=== PATIENT | male | born 1990 | race Two or more races ===

== ENCOUNTER → 2023-11-23 | Outpatient (CLI) | payer BC ==
[2023-11-23 10:40] LABS: Basophils # (auto) 0 10 ^3/uL (0-0.2); Basophils % (auto) 0.6 % (0.0-2.0); Eosinophils # (auto) 0.1 10 ^3/uL (0-0.8); Eosinophils % (auto) 1.8 % (0.0-7.0); Hematocrit 43.9 % (41.0-53.0); Hemoglobin 14.2 g/dL (13.5-17.5); Lymphocytes # (auto) 2.2 10 ^3/uL (0.4-5.4); Lymphocytes % (auto) 38.9 % (10.0-50.0); Mean Corpuscular Hemoglobin 24.8 pg (28.0-32.0); Mean Corpuscular Hgb Conc. 32.4 g/dL (32.0-36.0); Mean Corpuscular Volume 76.8 fL (80.0-100.0); Monocytes # (auto) 0.4 10 ^3/uL (0-1.3); Monocytes % (auto) 6.4 % (0.0-12.0); Neutrophils % (auto) 52.3 % (37.0-80.0); Nucleated Red Blood Cells % 0.1 %; Platelet Count (auto) 190 10^3/uL (140-450); Red Blood Cells 5.71 10^6/uL (4.5-5.90); Red Cell Distribution Width 15.1 % (11.8-14.3); White Blood Cell 5.7 10^3/uL (4.4-10.8)
[2023-11-23 11:39] LABS: Alanine Aminotransferase 27 U/L (7-40); Albumin 4.7 g/dL (3.2-4.8); Alkaline Phosphatase 89 U/L (46-116); Calcium 9.7 mg/dL (8.7-10.4); Triglycerides 107 mg/dL (< 150)
[2023-11-23 11:40] LABS: Anion Gap 6 (5-15); Aspartate Aminotransferase 11 U/L (13-40); BUN/Creatinine Ratio 12.4 (10.0-20.0); Blood Urea Nitrogen 12 mg/dL (9-23); Carbon Dioxide 28 mmol/L (20-31); Chloride 108 mmol/L (98-107); Cholesterol 187 mg/dL (< 200); Glucose 96 mg/dL (74-106); HDL Cholesterol 46 mg/dL (40-59); LDL Cholesterol 130 mg/dL (< 100); Sodium 142 mmol/L (136-145); Total Protein 7.3 g/dL (5.7-8.2)
[2023-11-23 11:45] LABS: Free T4 (Free Thyroxine) 1.32 ng/dL (0.89-1.76)
[2023-11-23 11:46] LABS: Follicle Stimulating Hormone 6.26 IU/L (1.4-18.1)
== END | disposition home or self-care (01) ==
LOC: LAB 10:13
PROVIDERS: ATTEND Internal Medicine
DX: Z00.01 Encounter for general adult medical examination with abnormal findings (principal); Z13.1 Encounter for screening for diabetes mellitus; R79.89 Other specified abnormal findings of blood chemistry; R03.0 Elevated blood-pressure reading, without diagnosis of hypertension
CPT/HCPCS: 36415; 80053; 80061; 82306; 82607; 82670; 83001; 83002; 83036; 84403; 84439; 84443; 85025

== ENCOUNTER 2024-12-22 06:57 | Outpatient (CLI) | payer BC ==
[2024-12-22 07:23] LABS: Nucleated Red Blood Cells % 0.1 %
[2024-12-22 07:24] LABS: Hematocrit 35.1 % (41.0-53.0); Hemoglobin 11.1 g/dL (13.5-17.5); Mean Corpuscular Hemoglobin 19.9 pg (28.0-32.0); Mean Corpuscular Volume 63.0 fL (80.0-100.0)
[2024-12-22 07:56] LABS: Alanine Aminotransferase 52 U/L (7-40); Albumin 4.3 g/dL (3.2-4.8); Alkaline Phosphatase 102 U/L (46-116); Anion Gap 9 (5-15); BUN/Creatinine Ratio 10.8 (10.0-20.0); Blood Urea Nitrogen 10 mg/dL (9-23); Calcium 9.0 mg/dL (8.7-10.4); Carbon Dioxide 27 mmol/L (20-31); Chloride 105 mmol/L (98-107); Glucose 93 mg/dL (74-106); Potassium 4.0 mmol/L (3.5-5.1); Sodium 141 mmol/L (136-145); Total Protein 7.0 g/dL (5.7-8.2)
[2024-12-22 07:57] LABS: Bilirubin, Total 0.6 mg/dL (0.2-1.0)
== END 2024-12-22 17:00 | disposition home or self-care (01) ==
LOC: LAB 06:57
PROVIDERS: ATTEND Internal Medicine
DX: E78.5 Hyperlipidemia, unspecified (principal); R07.9 Chest pain, unspecified; I06.9 Rheumatic aortic valve disease, unspecified
CPT/HCPCS: 36415; 80053; 84484; 85025; 85379; 85652; 86141

== ENCOUNTER 2024-12-22 07:21 | Inpatient (IN) | payer BC ==
[2024-12-22] VITALS (12 sets, daily range): BP systolic 110–135; BP diastolic 70–95; PULSE 85–101; RESP 11–19; TEMP 98.3; O2SAT 96–99
[~2024-12-22] VITALS: Ht 177.8 cm; Wt 95.2 kg
--- NOTE | 2024-12-22 07:35 | ED.PDOC ---
History of Present Illness HPI Comments This is a 34 year old male presenting to the ED with chief complaint of chest pain. Patient reports that he had been experiencing a fever with associated chills for the past 2 days, however, since 2am this morning, he began to have chest pressure. Patient denies any cough, congestion, ear pain, SOB, hemoptysis, N/V, or dizziness. Chief Complaint: Flu like Time Seen by MD: 07:34 Reviewed Notes: Nurses Notes, Medications, Allergies Information Source: Patient Mode of Arrival: Ambulatory Severity: Mild Timing: Days Duration: Since onset Prehospital treatment: None Past Medical History PAST MEDICAL HISTORY: Denies Surgical History: Denies all surgeries Family History Family History: Reviewed,noncontributory to illness Social History Smoker: Non-Smoker Alcohol: Denies ETOH Use Drugs: Denies Drug Use Lives In: Home Constitutional: reports: chills, fever; denies: diaphoresis, fatigue, malaise, sweats, weakness, others EENTM: denies: blurred vision, double vision, ear bleeding, ear discharge, ear drainage, ear pain, ear ringing, eye pain, eye redness, hearing loss, mouth pain, mouth swelling, nasal discharge, nose bleeding, nose congestion, nose pain, photophobia, tearing, throat pain, throat swelling, voice changes, others Respiratory: denies: cough, hemoptysis, orthopnea, SOB at rest, shortness of breath, SOB with excertion, stridor, wheezing, others Cardiovascular: reports: chest pain; denies: dizzy spells, diaphoresis, Dyspnea on exertion, edema, irregular heart beat, left arm pain, lightheadedness, palpitations, PND, syncope, others Gastrointestinal: denies: abdomen distended, abdominal pain, blood streaked bowels, constipated, diarrhea, dysphagia, difficulty swallowing, hematemesis, melena, nausea, poor appetite, poor fluid intake, rectal bleeding, rectal pain, vomiting, others Genitourinary: denies: burning, dysuria, flank pain, frequency, hematuria, incontinence, penile discharge, penile sore, pain, testicle pain, testicle swelling, urgency, others Neurological: denies: dizziness, fainting, headache, left sided numbness, left sided weakness, numbness, paresthesia, pre-existing deficit, right sided numbness, right sided weakness, seizure, speech problems, tingling, tremors, weakness, others Musculoskeletal: denies: back pain, gout, joint pain, joint swelling, muscle pain, muscle stiffness, neck pain, others Integumetry: denies: bruises, change in color, change in hair/nails, dryness, laceration, lesions, lumps, rash, wounds, others Allergic/Immunocompromised: denies: Difficulty Healing, Frequent Infections, Hives, Itching, others Hematologic/Lymphatic: denies: anemia, blood clots, easy bleeding, easy bruising, swollen glands, others Endocrine: denies: excessive hunger, excessive sweating, excessive thirst, excessive urination, flushing, intolerance to cold, intolerance to heat, unexplained weight gain, unexplained weight loss, others Psychiatric: denies: anxiety, bipolar disorder, depression, hopeless, panic disorder, schizophrenia, sleepless, suicidal, others All Other Systems: Reviewed and Negative Physical Exam General Appearance: Moderate Distress HEENT: Normal ENT Inspection, Pharynx Normal, TMs Normal Neck: Full Range of Motion, Non-Tender, Normal, Normal Inspection Respiratory: Lungs Clear, No Accessory Muscle Use, No Respiratory Distress, Normal Breath Sounds, Other (Tenderness to the anterior chest) Cardiovascular: No Edema, No JVD, No Murmur, No Gallop, Normal Peripheral Pulses, Regular Rate/Rhythm Breast Exam: Deferred Gastrointestinal: No Organomegaly, Non Tender, No Pulsatile Mass, Normal Bowel Sounds, Soft Genitalia: Deferred Pelvic: Deferred Rectal: Deferred Extremities: No calf tenderness, Normal capillary refill, No pedal edema Musculoskeletal : Apperance: Normal Neurologic: Alert, medical lab specialist II-XII nml as Tested, No Motor Deficits, Normal Affect, Normal Mood, No Sensory Deficits Cerebellar Function: Normal Reflexes: Normal Skin: Dry, Normal Color, Warm Lymphatic: No Adenopathy Was a procedure done? Was a procedure done?: No EKG EKG : Pulse Rate (adult): 74 [place]: Normal Cardiac Rhythm: NSR ST: Nonsp Differential Dx Considerations may include: ACS, TX, acute myocardial ischemia X-Ray, Labs, Meds, VS Vital Signs Date Time Temp Pulse Resp B/P (MAP) Pulse Ox O2 Delivery O2 Flow Rate FiO2 12/22/24 07:31 98.5 92 18 146/110 98 98.5 Lab Test 12/22/24 08:00 Range/Units Influenza Type A Antigen Negative Negative Influenza Type B Antigen Negative Negative SARS-CoV-2 Antigen (Rapid) Negative NEGATIVE Chest XR indicates: No acute cardiopulmonary disease. IV Hep-Lock is being established. The COVID test is negative The influenza a and influenza B are negative The patient had some outpatient labs done in his troponin level is over 800 At this time, the patient is being admitted with a diagnosis of acute pericarditis The patient will be started on some Toradol as well as some steroids The patient was given Solu-Medrol 125 mg IV push A cardiology consult will be obtained. Images Reviewed?: Images reviewed and evaluated by me Time of 1ST Reevaluation: 09:19 Reevaluation 1ST: Unchanged Patient Education/Counseling: Diagnosis, Treatment, Prognosis Family Education/Counseling: No Family Present SEPSIS Sepsis Screen Physician Orders Chest Xray 1 View (12/22/24 07:26) Heplock Iv (12/22/24 08:23) Implementation Engineer (12/22/24 08:23) Blood Pressure (12/22/24 08:23) Pulse Oximetry (12/22/24 08:23) Electrocardigram (12/22/24 08:23) Troponin-I Hs (12/22/24 08:23) Electrocardigram (12/22/24 09:23) Electrocardigram (12/22/24 11:23) Troponin-I Hs (12/22/24 09:23) Troponin-I Hs (12/22/24 11:23) Vital Signs Date Time Temp Pulse Resp B/P (MAP) Pulse Ox O2 Delivery O2 Flow Rate FiO2 12/22/24 07:31 98.5 92 18 146/110 98 98.5 Departure 1 Departure Time of Disposition: 09:19 Impression: Primary Impression: Acute chest pain Additional Impressions: Pericarditis Qualified Codes: I30.9 - Acute pericarditis, unspecified Elevated troponin Disposition: ADMITTED INPATIENT Admit to: Tele Condition: Fair Critical Care Note Critical Care Time?: No Stability Stability form required: Yes Unstable for transfer: Telemetry monitoring (Telemetry monitoring required), ED Physician Assesment (Clinical assesment) Heart Score Heart Score: Heart Score Response (Comments) Value History Moderate Suspicious 1 EKG Normal 0 Age <45 0 Risk Factors No known risk factors 0 Troponin >3 x's Normal limit 2 Total 3 I personally scribed for DARIELA,CHIDI B MD ([email or web address]) on 12/22/24 at 07:35. Electronically submitted by Esa Jean ([email or web address]). I personally scribed for CHIDI LYLE MD ([email or web address]) on 12/22/24 at 08:47. Electronically submitted by Esa Jean ([email or web address]). CHIDI LYLE MD Dec 22, 2024 07:35
--- NOTE | 2024-12-22 08:20 | DVH ---
EXAM: XY CHEST XRAY 1 VIEW Indication: cough Technique: Single frontal view of the chest was obtained Comparison: None FINDINGS: Lines and Tubes: None Lungs: No focal consolidation. Pleura: No effusion. No pneumothorax. Cardiomediastinal contours: Unremarkable Bones: No acute osseous abnormality. IMPRESSION: No acute cardiopulmonary disease.
[2024-12-22 08:56] LABS: COVID19 ANTIGEN SOFIA FIA NEGATIVE (NEGATIVE)
[2024-12-22] MEDS ORDERED: NITROGLYCERIN 0.4 MG SL TAB SL PRN (09:30)
[2024-12-22] MEDS ORDERED: HYDROcodone-ACET 5/325MG TAB PO PRN (09:30)
[2024-12-22] MEDS ORDERED: MORPHINE SULFATE INJ 2 MG/ml SYRG IV PRN (09:30)
[2024-12-22] MEDS ORDERED: ACETAMINOPHEN 325 MG TAB PO PRN (09:30)
--- NOTE | 2024-12-22 09:40 | DVHHPRES ---
History of Present Illness Resident Creating Document: INO CROCKER RESIDENT History of Present Illness Dez Regalado is a 34 year old male presenting to the ED with chief complaint of chest pain. Patient reports that he had been experiencing a fever with associated chills for the past 2 days, however, since 2am this morning, he began to have chest pressure 8/10 intensity, nonradiating, no aggravating but relieved by taking Tylenol. Patient denies any cough, congestion, ear pain, SOB, hemoptysis, N/V, or dizziness. PMH: Nonsignificant PSH: Not significant Family history: Nonsignificant Social history: Lives at home. Denies smoking, alcohol or drug abuse Home medications: None Allergies: No known allergies ROS: Patient seen and examined at the bedside. Patient is currently reporting chest pain intensity 3/10 which is improved but rest of ROS is negative Review of Systems Medications Current Medications Medications Dose Ordered Sig/Morenita Route Start Time Stop Time Status Last Admin Dose Admin Sodium Chloride 10 ml Q8HR IV 12/22/24 14:00 UNV Acetaminophen/ Hydrocodone Bitart 1 tab Q4HP PRN PO 12/22/24 09:30 UNV Acetaminophen 650 mg Q6HP PRN PO 12/22/24 09:30 UNV Nitroglycerin 0.4 mg Q5MINP PRN SL 12/22/24 09:30 UNV Morphine Sulfate 2 mg Q30M PRN IV 12/22/24 09:30 UNV Colchicine 0.6 mg Q12HR PO 12/22/24 09:30 UNV Exam Vital Signs Vital Signs Date Time Temp Pulse Resp B/P (MAP) Pulse Ox O2 Delivery O2 Flow Rate FiO2 12/22/24 09:21 74 12/22/24 07:31 98.5 18 146/110 98 98.5 Exam Pt is lying on bed General Appearance: Alert, Oriented X3, Cooperative, Not in acute distress HEENT: Atraumatic, Mucous membranes moist/pink Respiratory: Clear to auscultation, Normal air movement, No added sounds Cardiovascular: Regular rate, Normal S1, Normal S2, No murmurs Abdominal: Active bowel sounds, Soft, no distention, no tenderness Extremities: No edema, Normal pulses, No tenderness/swelling Skin: No Significant rash Neuro: Normal speech, sensorimotor deficits none Psych/Mental Status: Mental status NL, Mood NL Nurse was there as insurance underwriter during examination Labs/Xrays Labs Test 12/22/24 08:00 Range/Units Influenza Type A Antigen Negative Negative Influenza Type B Antigen Negative Negative SARS-CoV-2 Antigen (Rapid) Negative NEGATIVE SEPSIS Sepsis Screen Date sepsis recognized/suspect: Dec 22, 2024 Time Sepsis recognized/suspect: 732 Recent Procedure: No On Antibiotic Therapy: No Respiratory Rate >20: No Heart Rate >90: No Temp<36 C (96.8 F) or >38.3 C: No SBP <90 or MAP <65 mmHG: No New Acute Mental Status Change: No Is the patient on CPAP, BIPAP,: No Physician Orders Chest Xray 1 View (12/22/24 07:26) Heplock Iv (12/22/24 08:23) Key Carrier (12/22/24 08:23) Blood Pressure (12/22/24 08:23) Pulse Oximetry (12/22/24 08:23) Electrocardigram (12/22/24 08:23) Troponin-I Hs (12/22/24 08:23) Electrocardigram (12/22/24 09:23) Electrocardigram (12/22/24 11:23) Troponin-I Hs (12/22/24 09:23) Troponin-I Hs (12/22/24 11:23) Methylprednisolone Sod Succ (Solu Medrol (12/22/24 09:30) Ketorolac Injection (Toradol Injection) (12/22/24 09:30) Admit (12/22/24 09:25) Allergies (12/22/24 09:25) Code Status (12/22/24 09:25) Sodium Chloride Lock (Saline Lock Ns) (12/22/24 14:00) Hydrocodone-Acet 5/325mg Tab ([place] 5/32 (12/22/24 09:30) Condition: Stable (12/22/24 09:25) Acetaminophen Tablet (Tylenol Tablet) (12/22/24 09:30) Nitroglycerin Sublingual (Ntrostat Subli (12/22/24 09:30) Morphine Sulfate Injection (12/22/24 09:30) Oxygen By Nasal Cannula (12/22/24 09:25) Stat Ekg For Chest Pain (12/22/24 09:25) Notify Of Changes From Base (12/22/24 09:25) Data Capture Clerk For 24 Hours (12/22/24 09:25) Emergency Dysrhythmia Protocol (12/22/24 09:25) Rhythm Strips Once Every Shift (12/22/24 09:25) Colchicine (Colcrys) (12/22/24 09:30) Pantoprazole Tablet (Protonix Tablet) (12/22/24 09:45) Vital Signs Date Time Temp Pulse Resp B/P (MAP) Pulse Ox O2 Delivery O2 Flow Rate FiO2 12/22/24 09:21 74 12/22/24 07:31 98.5 92 18 146/110 98 98.5 Medications Medications Dose Ordered Sig/Morenita Route Start Time Stop Time Status Last Admin Dose Admin Aspirin 162 mg ONCE ONCE PO 12/22/24 08:30 12/22/24 08:31 DC 12/22/24 09:28 162 MG Assessment/Plan Assessment/Plan # Chest pain rule out ACS # NSTEMI likely type 2 # Possible acute pericarditis likely postviral - Telemetry - EKG - troponins initially 870 - elevated C-reactive protein - chest pain protocol - Toradol - started colchicine 0.6 mg q.12h - echocardiogram PUD PPX: Protonix DVT PPX: Patient is ambulatory Diet: Regular Goals of care discussed with the patient for more than 27 mins: Full code status Case discussed with Dr. Martinez Plan discussed with: Patient My Orders Orders - INO CROCKER RESIDENT Procedure Category Date Status Time Admit ADMIT 12/22/24 Transmitted 09:25 Allergies SUSSY 12/22/24 In Process 09:25 Code Status CODE 12/22/24 Transmitted 09:25 Sodium Chloride Lock PHA 12/22/24 Logged (Saline Lock Ns) 14:00 Hydrocodone-Acet PHA 12/22/24 Logged 5/325mg Tab ([place] 09:30 Condition: Stable SUSSY 12/22/24 In Process 09:25 Acetaminophen Tablet PHA 12/22/24 Logged (Tylenol Tablet) 09:30 Nitroglycerin PHA 12/22/24 Logged Sublingual (Ntrostat 09:30 Morphine Sulfate PHA 12/22/24 Logged Injection 09:30 Oxygen By Nasal RT 12/22/24 Transmitted Cannula 09:25 Stat Ekg For Chest SUSSY 12/22/24 In Process Pain 09:25 Notify Of Changes SUSSY 12/22/24 In Process From Base 09:25 Data Capture Clerk For SUSSY 12/22/24 In Process 24 Hours 09:25 Emergency Dysrhythmia SUSSY 12/22/24 In Process Protocol 09:25 Rhythm Strips Once SUSSY 12/22/24 In Process Every Shift 09:25 Colchicine (Colcrys) PHA 12/22/24 Logged 09:30 Pantoprazole Tablet PHA 12/22/24 Verified (Protonix Tablet) 09:45 Date of Service: Dec 22, 2024 Billing Provider: MICHELLE MARTINEZ MD Common Visit Codes: [id number] INP/OBS CARE (MOD) INO CROCKER RESIDENT Dec 22, 2024 09:40
--- NOTE | 2024-12-22 09:56 | DVHINCON2 ---
Date Seen: Dec 22, 2024 Referring Physician MD Taz Reason for Consultation Elevated troponins, chest pain History of Present Illness This is a pleasant 34-year-old male who presented to the emergency room with a chief complaint of chest pain since 0200 today. Describes his chest pain as substernal, nonradiating, non-provoked, intermittent, tightness like, and associated with cold-like symptoms. Lying down makes the pain worse and leaning forward makes it better. The patient self administered Tylenol with mild relief of symptoms. Rated his chest pain as 3/10 at time of assessment. He underwent a 12 lead electrocardiogram revealing a sinus rhythm suggestive of acute pericarditis. Baseline troponin level was found at 870 ng/L. Significant medical history includes dyslipidemia and obesity. Past Medical History Past medical history reviewed. No other significant than mentioned above. Past Surgical History Past surgical history reviewed. No other significant than mentioned above. Family History Family history reviewed. Significant for cardiovascular disease: Maternal grandfather with a history of multiple MIs x5 with stent placement. Social History Denies the use of illicit drugs or tobacco use. Admits to social alcohol use. Allergies: Coded Allergies: NO KNOWN ALLERGIES (Unverified , 12/22/24) Home Meds Tylenol. Current Medications Current Medications Medications (Trade) Dose Ordered Sig/Morenita Route PRN Reason Start Time Stop Time Status Last Admin Sodium Chloride (Saline Lock Ns) 10 ml Q8HR IV 12/22/24 14:00 UNV Acetaminophen/ Hydrocodone Bitart ([place] 5/325MG Tab) 1 tab Q4HP PRN PO MODERATE PAIN (4-6 PAIN SCALE) 12/22/24 09:30 UNV Acetaminophen (Tylenol Tablet) 650 mg Q6HP PRN PO PAIN SCALE 1-3 OR TEMP>100.4 12/22/24 09:30 UNV Nitroglycerin (Ntrostat Sublingual) 0.4 mg Q5MINP PRN SL FOR CHEST PAIN 12/22/24 09:30 UNV Morphine Sulfate 2 mg Q30M PRN IV FOR CHEST PAIN 12/22/24 09:30 UNV Colchicine (Colcrys) 0.6 mg Q12HR PO 12/22/24 09:30 UNV Pantoprazole Sodium (Protonix Tablet) 40 mg DAILY@0600 PO 12/22/24 09:45 UNV Review of Systems Constitutional: No symptom reported Ears, Nose, & Throat: No symptom reported Eyes: No symptom reported Neurological: No symptoms reported Pulmonary/Respiratory: No symptom reported Cardiovascular: Chest pain Gastrointestinal: No symptom reported Genitourinary: No symptom reported Musculoskeletal: No symptom reported Skin: No symptom reported Psychiatric: No symptom reported Endocrine: No symptom reported Hemotologic/Lymphatic: No symptom reported Vital Signs Vital Signs Date Time Temp Pulse Resp B/P (MAP) Pulse Ox O2 Delivery O2 Flow Rate FiO2 12/22/24 09:21 74 12/22/24 07:31 98.5 18 146/110 98 98.5 Physical Exam General Appearance: Cooperative. Well developed. Well nourished. In no acute distress Head Exam: Normal inspection Neck Exam: Normal inspection. Non-tender. Normal alignment Pulmonary/Respiratory: Chest non-tender. Clear bilateral breath sounds Cardiovascular/Chest: Regular rate and rhythm. S1, S2. Sinus rhythm with doss btle ST-elevation to multiple leads suggestive of pericarditis. No murmurs. No JVD. Peripheral Pulses: 2+ Radial (R). 2+ Radial (L). 2+ Pedal (R). 2+ Pedal (L) Abdominal Exam: Normal bowel sounds. Soft. Ankle Exam: Negative ankle edema Lower extremities: Negative lower extremity edema Neuro/Mental Status: A&O x4. Coherent Thoughts/Psych: Normal thought pattern. Appropriate mood and affect. Good judgement and insight Appearance: In no acute distress Skin Exam: Normal inspection. Normal color. Warm. Dry Labs/Diagnostic Data Labs Test 12/22/24 08:00 Range/Units Influenza Type A Antigen Negative Negative Influenza Type B Antigen Negative Negative SARS-CoV-2 Antigen (Rapid) Negative NEGATIVE Assessment Non ST-elevation myocardial infarction Highly suspected for acute viral pericarditis Dyslipidemia Obesity * Transthoracic echocardiogram revealed LVEF 65% with normal RV function, valves appear to be structurally normal * 12 lead electrocardiogram sinus rhythm with a subtle ST-elevation suggestive of acute pericarditis * Baseline troponin level 870 ng/L. CRP 1.31. ESR 14 Plan/Recommendation (Dr. Pena) The patient presents with likely acute viral pericarditis given recent cold-like symptoms. Given ST-segment changes, elevated troponin level, and family history for cardiovascular disease, the patient has been scheduled for a cardiac catheterization with coronary angiogram with Dr. Pena at first available. All risks and benefits of the procedure were discussed with the patient who agreed to proceed with intervention. All questions answered. In the meantime, initiate ibuprofen 600 mg p.o. q8h for 1-2 weeks, then decrease dose by 200-400 mg every 1-2 weeks. Add PPI and colchicine therapy qd. Further orders per clinical course. Thank you for allowing us to participate in this patient's care. Please call if you have any questions or concerns. This medical document was created using an electronic medical record system with voice recognition software and computerized dictation system. Although this document has been carefully reviewed, there might still be some phonetic and typographical errors. Occasional wrong-word or ``sound-alike substitutions may have occurred due to the inherent limitations of voice recognition software. These areas are purely typographical due to imperfections of the software programs and do not reflect any compromise in the patient's medical care. Pl ease read the chart carefully and recognize, using context, where these substitutions have occurred. Plan discussed with: Patient, Spouse, Other NYHA Physical activity limitations: NA Date of Service: Dec 22, 2024 Billing Provider: J CARLOS RESENDEZ Cardiology Common Codes: [id number]-[id number] INP/OBS CARE (High) J CARLOS RESENDEZ Dec 22, 2024 09:56
[2024-12-22] MEDS: IODIXANOL 320MG/ML 100ML BTL IV ONE (10:43)
[2024-12-22] MEDS: ANGIOMAX 250 MG VIAL IV ONE (10:50)
[2024-12-22] MEDS: fentaNYL CITRATE 100 MCG/2 ML VL ONE (10:50)
[2024-12-22] MEDS: LIDOCAINE 2%HCL (LOCAL ANESTH.) INJ 20ML MDV ONE (10:51)
[2024-12-22] MEDS: SODIUM CHL 0.9% 0 ML ONE (10:51)
[2024-12-22] MEDS: MIDAZOLAM HCL 2MG/2ML 2ml VIAL (1mg/ml) ONE (10:51)
[2024-12-22] MEDS: HEPARIN 1,000 UNITS/ml 1ML VIAL ONE (10:52)
[2024-12-22] MEDS: VERAPAMIL 2.5MG/ML INJ 2ML VIAL IV ONE (10:52)
[2024-12-22] MEDS: HEPARIN SODIUM (PORCINE) 5000 UNITS/ML 1ML VIAL ONE (11:34)
--- NOTE | 2024-12-22 11:43 | DVHINCON2 ---
Date of service: Dec 22, 2024 History of Present Illness 34 yo M with no PMH, recent fever, maliase, flu like symptoms admitted for nsteim and chest pain. CP is worse at rest and better with sitting up. ecg shows SR, non specific st t changes . stat echo shows normal lvef Past Medical History reviewed Allergies: Coded Allergies: NO KNOWN ALLERGIES (Unverified , 12/22/24) Current Medications Current Medications Medications (Trade) Dose Ordered Sig/Morenita Route PRN Reason Start Time Stop Time Status Last Admin Sodium Chloride (Saline Lock Ns) 10 ml Q8HR IV 12/22/24 14:00 Acetaminophen/ Hydrocodone Bitart ([place] 5/325MG Tab) 1 tab Q4HP PRN PO MODERATE PAIN (4-6 PAIN SCALE) 12/22/24 09:30 Acetaminophen (Tylenol Tablet) 650 mg Q6HP PRN PO PAIN SCALE 1-3 OR TEMP>100.4 12/22/24 09:30 Nitroglycerin (Ntrostat Sublingual) 0.4 mg Q5MINP PRN SL FOR CHEST PAIN 12/22/24 09:30 Morphine Sulfate 2 mg Q30M PRN IV FOR CHEST PAIN 12/22/24 09:30 Colchicine (Colcrys) 0.6 mg Q12HR PO 12/22/24 09:30 Pantoprazole Sodium (Protonix Tablet) 40 mg DAILY@0600 PO 12/22/24 09:45 Review of Systems 10 pt ros otherwise negative +fever, +weakness, +rigors Vital Signs Vital Signs Date Time Temp Pulse Resp B/P (MAP) Pulse Ox O2 Delivery O2 Flow Rate FiO2 12/22/24 09:30 96 18 141/95 (110) 99 12/22/24 09:30 Room Air* 0 21 12/22/24 07:31 98.5 98.5 Physical Exam nad s1 s2 rrr ctab soft nt/nd no edema Labs/Diagnostic Data Labs Test 12/22/24 10:44 12/22/24 08:00 Range/Units Troponin I High Sensitivity 1061 *H </=54 ng/L Influenza Type A Antigen Negative Negative Influenza Type B Antigen Negative Negative SARS-CoV-2 Antigen (Rapid) Negative NEGATIVE Assessment r/o pericarditis fever Plan/Recommendation recommend LHC to r/o cad pt agrees to plan after informed consent tylenol, asa watch tele IVF Plan discussed with: Patient ANNA BARBER MD Dec 22, 2024 11:43
--- NOTE | 2024-12-22 11:44 | DVHOP2 ---
Operative Report Operative Report CARDIAC MATERIAL HANDLING SUPERVISOR PROCEDURE REPORT [place], [place] Date of Service: 12/22/24 Ammonia Box Operator: Anna Barber MD PROCEDURES PERFORMED: Coronary angiogram, left heart catheterization, conscious sedation administration and supervision, less than 15 minutes; fluoroscopy use and interpretation. PREOPERATIVE DIAGNOSES: r/o myopericaridits, elevated troponin POSTOP DIAGNOSIS: myopericarditis DESCRIPTION OF PROCEDURE: The patient or appropriate family signed informed consent understanding the risks, benefits and alternatives of the procedure, they wished to proceed. The patient was brought to the cardiac labor relations analyst in n.p.o. state. The patient was prepped in a sterile fashion. Sedation was used per cardiac cath protocol. I administered 2 mL of 2% lidocaine to the right wrist. With an antegrade front wall puncture. I cannulated the right radial artery and placed a 6-[place] Glidesheath slender. Next, an intra-arterial spasmolytic was administered. Next, a - 6[place] catheter pigtail guide and were used for coronary angiogram and LVEDP measurement and pressure pullback. At the completion of procedure, all guides and wires were removed, and there were no immediate complications. FINDINGS: RCA: Moderate vessel off the right sinus of Valsalva, there is no severe flow limiting stenosis. LEFT MAIN: Moderate size left main, it bifurcates into LAD and circumflex. no stenosis CIRCUMFLEX: Moderate caliber vessel coming off the left main with no flow limiting stenosis. LAD: LAD is a moderate caliber vessel coming of the left main. no stenosis CONCLUSIONS: 1. NO cad, normal coronary arteries PLAN: Aggressive risk factor modification and medical management for the patient. ANNA BARBER MD Dec 22, 2024 11:44
[2024-12-22 11:48] LABS: Hematocrit 36.4 % (41.0-53.0); Hemoglobin 11.1 g/dL (13.5-17.5); Mean Corpuscular Hemoglobin 19.3 pg (28.0-32.0); Mean Corpuscular Volume 63.0 fL (80.0-100.0); Nucleated Red Blood Cells % 0.0 %
[2024-12-22 11:52] LABS: Chloride 105 mmol/L (98-107); Potassium 4.8 mmol/L (3.5-5.1); Sodium 141 mmol/L (136-145)
[2024-12-22 11:53] LABS: Anion Gap 10 (5-15); Calcium 9.2 mg/dL (8.7-10.4); Carbon Dioxide 26 mmol/L (20-31)
[2024-12-22 11:58] LABS: BUN/Creatinine Ratio 10.0 (10.0-20.0); Blood Urea Nitrogen 8 mg/dL (9-23); Glucose 93 mg/dL (74-106)
[2024-12-22 12:04] LABS: INR 0.98 (0.9-1.15); Partial Thromboplastin Time 28.3 SEC (24.5-34.5); Prothrombin Time 10.4 sec (9.3-11.8)
[2024-12-22 12:21] LABS: Triglycerides 111.0 mg/dL (< 150)
[2024-12-22] MEDS: methylPREDNISolone SOD SUCC 125 MG/2 ML VL IV ONE (12:21)
[2024-12-22 12:22] LABS: Magnesium 2.2 mg/dL (1.6-2.6)
[2024-12-22] MEDS: PANTOPRAZOLE 40 MG TAB PO SCH (12:22)
[2024-12-22] MEDS: COLCHICINE 0.6 MG CAP PO SCH (12:22)
[2024-12-22] MEDS: KETOROLAC TROMETH 30 MG/ML 1ML VIAL IV ONE (12:22)
[2024-12-22 12:24] LABS: Cholesterol 172.0 mg/dL (< 200)
[2024-12-22 12:27] LABS: HDL Cholesterol 37.0 mg/dL (40-59)
--- NOTE | 2024-12-22 13:37 | DVHDS2 ---
Discharge Summary Date of Admission Dec 22, 2024 at 09:25 Date of Discharge: Dec 22, 2024 Labs/Diagnostic Data: Laboratory Results Test 12/22/24 10:44 12/22/24 08:00 White Blood Count 5.9 10^3/uL (4.4-10.8) Red Blood Count 5.78 10^6/uL (4.5-5.90) Hemoglobin 11.1 g/dL (13.5-17.5) Hematocrit 36.4 % (41.0-53.0) Mean Corpuscular Volume 63.0 fL (80.0-100.0) Mean Corpuscular Hemoglobin 19.3 pg (28.0-32.0) Mean Corpuscular Hemoglobin Concent 30.7 g/dL (32.0-36.0) Red Cell Distribution Width 19.5 % (11.8-14.3) Platelet Count 165 10^3/uL (140-450) Mean Platelet Volume 9.9 fL (6.9-10.8) Neutrophils (%) (Auto) 67.2 % (37.0-80.0) Lymphocytes (%) (Auto) 20.9 % (10.0-50.0) Monocytes (%) (Auto) 10.1 % (0.0-12.0) Eosinophils (%) (Auto) 1.4 % (0.0-7.0) Basophils (%) (Auto) 0.4 % (0.0-2.0) Neutrophils # (Auto) 4.0 10 ^3/uL (1.6-8.6) Lymphocytes # (Auto) 1.2 10 ^3/uL (0.4-5.4) Monocytes # (Auto) 0.6 10 ^3/uL (0-1.3) Eosinophils # (Auto) 0.1 10 ^3/uL (0-0.8) Basophils # (Auto) 0 10 ^3/uL (0-0.2) Nucleated Red Blood Cells 0.0 % Prothrombin Time 10.4 sec (9.3-11.8) Prothrombin Time INR 0.98 (0.9-1.15) Activated Partial Thromboplast Time 28.3 SEC (24.5-34.5) Sodium Level 141 mmol/L (136-145) Potassium Level 4.8 mmol/L (3.5-5.1) Chloride Level 105 mmol/L (98-107) Carbon Dioxide Level 26 mmol/L (20-31) Anion Gap 10 (5-15) Blood Urea Nitrogen 8 mg/dL (9-23) Creatinine 0.80 mg/dL (0.700-1.30) Glomerular Filtration Rate Calc 121 mL/min (>90) BUN/Creatinine Ratio 10.0 (10.0-20.0) Serum Glucose 93 mg/dL (74-106) Calcium Level 9.2 mg/dL (8.7-10.4) Magnesium Level 2.2 mg/dL (1.6-2.6) Troponin I High Sensitivity 1061 ng/L (</=54) B-Type Natriuretic Peptide 20.65 pg/mL (0-100) Triglycerides Level 111 mg/dL (< 150) Cholesterol Level 172 mg/dL (< 200) LDL Cholesterol 122 mg/dL (< 100) HDL Cholesterol 37 mg/dL (40-59) Vitamin B12 Level 584 pg/mL (211-911) Vitamin D 25-Hydroxy 28.2 ng/mL (30.0-100) Thyroid Stimulating Hormone (TSH) 2.07 uIU/mL (0.55-4.78) Influenza Type A Antigen Negative (Negative) Influenza Type B Antigen Negative (Negative) SARS-CoV-2 Antigen (Rapid) Negative (NEGATIVE) Other Laboratory Tests 12/22/24 10:44 Brief Hx & Hospital Course: 34 yo M with no PMH, recent fever, maliase, flu like symptoms admitted for nsteim and chest pain. CP is worse at rest and better with sitting up. ecg shows SR, non specific st t changes . stat echo shows normal lvef. LHC negative. Condition at Discharge: Guarded Final Diagnosis/Problems List Acute Pericarditis Microcytic Anemia- Occult stool as outpatient Discharge Disposition: Home Discharge Instruct/Medications Diet: Regular Activity: Light activity Discharge Statement: "Patient was advised to return to the ER or call 911 if any headaches, dizziness, shortness of breath, chest pain, abdominal pain, bleeding, fevers, or worsening of medical condition. Patient was counseled about treatment plan, medications, possible side effects, patientverbalized understanding. All questions were answered to the best of my ability. This discharge took greater then 30 minutes in planning, reviewing documentation, counseling the patient, and discussing with other team members." ASSESSMENT ASSESSMENT Assessment Acute Pericarditis Date of Service: Dec 22, 2024 Billing Provider: MICHELLE RODAS MD Common Visit Codes: 87846-KTZ/OBS DISCH DAY <30MIN MICHELLE RODAS MD Dec 22, 2024 13:37
[2024-12-22] MEDS ORDERED: SODIUM CHLOR 0.9% PF (SALINE LOCK) 10ML VIAL/SYR IV SCH (14:00)
[2024-12-22] MEDS ORDERED: IBUPROFEN 800 MG TAB PO SCH (14:00)
== END 2024-12-22 14:28 | disposition home or self-care (01) | DRG 281 ==
LOC: ER 07:21 → OVERFLOW 09:25
PROVIDERS: ATTEND Emergency Medicine
PROC: 4A023N7 Measurement of Cardiac Sampling and Pressure, Left Heart, Percutaneous Approach (ICD-10-PCS; principal; 2024-12-22)
PROC: B211YZZ Fluoroscopy of Multiple Coronary Arteries using Other Contrast (ICD-10-PCS; 2024-12-22)
DX: I21.4 Non-ST elevation (NSTEMI) myocardial infarction (principal); I30.9 Acute pericarditis, unspecified; E66.9 Obesity, unspecified; D50.9 Iron deficiency anemia, unspecified; Z20.822 Contact with and (suspected) exposure to COVID-19; E78.5 Hyperlipidemia, unspecified; Z82.49 Family history of ischemic heart disease and other diseases of the circulatory system; Z68.30 Body mass index [BMI] 30.0-30.9, adult
CPT/HCPCS: 36415; 71045; 80048; 80061; 82306; 82378; 82607; 83735; 83880; 84443; 84484; 85025; 85610; 85730; 87426; 87804; 93458; 99152; G0378; J1885; J2250; Q9967

== ENCOUNTER 2024-12-26 09:53 | Outpatient (CLI) | payer BC ==
[2024-12-26 10:15] LABS: Hemoglobin 11.2 g/dL (13.5-17.5); Mean Corpuscular Hemoglobin 19.5 pg (28.0-32.0); Nucleated Red Blood Cells % 0.0 %
[2024-12-26 10:18] LABS: Hematocrit 36.2 % (41.0-53.0); Mean Corpuscular Volume 63.0 fL (80.0-100.0)
[2024-12-26 11:08] LABS: Albumin 4.7 g/dL (3.2-4.8); Alkaline Phosphatase 98 U/L (46-116); Anion Gap 11 (5-15); BUN/Creatinine Ratio 23.9 (10.0-20.0); Blood Urea Nitrogen 21 mg/dL (9-23); Calcium 9.1 mg/dL (8.7-10.4); Carbon Dioxide 27 mmol/L (20-31); Chloride 106 mmol/L (98-107); Glucose 83 mg/dL (74-106); Potassium 4.0 mmol/L (3.5-5.1); Sodium 144 mmol/L (136-145); Total Protein 7.3 g/dL (5.7-8.2)
[2024-12-26 11:09] LABS: Bilirubin, Total 0.6 mg/dL (0.2-1.0)
[2024-12-26 11:13] LABS: Alanine Aminotransferase 72 U/L (7-40)
== END 2024-12-26 17:00 | disposition home or self-care (01) ==
LOC: LAB 09:53
PROVIDERS: ATTEND Internal Medicine
DX: I31.9 Disease of pericardium, unspecified (principal); D64.9 Anemia, unspecified; R79.89 Other specified abnormal findings of blood chemistry
CPT/HCPCS: 36415; 80053; 84484; 85025; 85652; 86141

== ENCOUNTER 2025-01-02 15:26 | Outpatient (CLI) | payer BC ==
[2025-01-02 15:37] LABS: Hematocrit 37.2 % (41.0-53.0); Hemoglobin 11.4 g/dL (13.5-17.5)
[2025-01-02 15:56] LABS: Total Iron Binding Capacity 413.0 ug/dL (250-425)
[2025-01-02 16:01] LABS: Iron 29.0 ug/dL (65-175)
== END 2025-01-02 17:00 | disposition home or self-care (01) ==
LOC: LAB 15:26
PROVIDERS: ATTEND Internal Medicine
DX: D50.9 Iron deficiency anemia, unspecified (principal)
CPT/HCPCS: 36415; 82728; 83540; 83550; 85014; 85018; 86141